=== PATIENT | female | born 1940 | race Caucasian/White ===

== ENCOUNTER → 2020-06-01 11:37 | Outpatient (CLI) | payer MEDICARE, SELFPAY ==
--- NOTE | ~2020-06-01 | XR_ITS ---
EXAMINATION: XR hand LT min 3V EXAM DATE: 06/01/2020 12:05 INDICATION: No known recent injury provided at this time. Pain of the left hand. TECHNIQUE: Left hand frontal, lateral and oblique projections obtained and reviewed. There is no iman or study for comparison. FINDINGS: Left metacarpal bones are unremarkable. There is mild polyarticular interphalangeal primar y osteoarthritis. There are no bony erosions identified. There are no acute fractures or dislocation s identified. There is no subcutaneous gas. The soft tissue is unremarkable. There are no radiopa que foreign bodies. IMPRESSION: Mild left hand interphalangeal polyarticular osteoarthritis. Reviewed, dictated and finalized at location B. 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
--- NOTE | ~2020-06-01 | XR_ITS ---
EXAMINATION: XR shoulder RT min 2V EXAM DATE: 06/01/2020 12:05 INDICATION: No known recent injury provided at this time. Pain of the right shoulder. TECHNIQUE: The following right shoulder projections obtained: frontal projection with internal rotati on, frontal projection with external rotation, Grashey, and axillary (4+ views). There is no prior s tudy for comparison. FINDINGS: No evidence of right shoulder rotator cuff calcific tendinosis. There is mild acromiocla vicular joint primary osteoarthritis. There are no acute fractures or dislocations identified. There is no subcutaneous gas. The soft tissue is unremarkable. There are no radiopaque foreign bodies. IMPRESSION: Mild right acromioclavicular joint osteoarthritis. Reviewed, dictated and finalized at location B. 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
--- NOTE | ~2020-06-01 | XR_ITS ---
EXAMINATION: XR hand RT min 3V EXAM DATE: 06/01/2020 12:05 INDICATION: No known recent injury provided at this time. Pain of the right hand. TECHNIQUE: Right hand frontal, lateral and oblique projections obtained and reviewed. There is no pr ior study for comparison. FINDINGS: Right metacarpal bones are unremarkable. There is mild polyarticular interphalangeal, mild to moderate 1st carpometacarpal primary osteoarthritis. There are no bony erosions identified. Ther e are no acute fractures or dislocations identified. There is no subcutaneous gas. The soft tissue is unremarkable. There are no radiopaque foreign bodies. IMPRESSION: Right hand polyarticular osteoarthritis, mild to moderate at the carpometacarpal joint. Reviewed, dictated and finalized at location B. 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
== END ==
PROVIDERS: PCP Physician Assistant; Visit Provider Physician Assistant
DX: M19.011 Primary osteoarthritis, right shoulder (principal); M19.041 Primary osteoarthritis, right hand; M19.042 Primary osteoarthritis, left hand
CPT/HCPCS: 73030; 73130

== ENCOUNTER 2020-09-16 10:43 | Outpatient (CLI) | payer MEDICARE, SELFPAY ==
--- NOTE | ~2020-09-16 | XR_ITS ---
EXAMINATION: XR lg joint inject/asp w image EXAM DATE: 09/16/2020 11:26 INDICATION: Left shoulder pain, adhesive capsulitis. TECHNIQUE: This procedure was performed by Dr. Deandre Lunsford, radiologist. I discussed procedure inclu ding the risks, benefits and alternatives with the patient. Risks discussed included bleeding and inf ection. The patient understood the risks and agreed to proceed. A time-out was performed to verify the patient's name, date of , and procedure. The skin over lying the left shoulder joint was prepped and draped in usual sterile fashion. Anesthetic was admin istered with 3 milliliters 1% lidocaine subcutaneously. A 22 G needle was advanced under fluoroscopi c guidance into the joint. Total of 1 mL of Omnipaque 240 confirmed intra-articular position of the needle. Subsequently, injectate consisting of 3cc lidocaine/40mg kenalog was instilled. The needl e was removed and the entry site was cleaned and dressed. There were no immediate complications. Pu lsed dose reduction fluoroscopy was used with fluoroscopic time of 0.1. The DAP for this procedure w as 0.05 Gycm2. A total of 5 images obtained for the exam. The procedure was performed on 09/16/2020. FINDINGS: Real-time fluoroscopy demonstrates the needle and contrast in the left shoulder joint. IMPRESSION: Successful left shoulder joint injection with steroids, lidocaine. Reviewed, dictated and finalized at location A.
== END 2020-09-16 10:44 | disposition home or self-care (01) ==
LOC: ANHIMG 10:47
PROVIDERS: PCP Physician Assistant; Visit Provider Physician Assistant
DX: M75.02 Adhesive capsulitis of left shoulder (principal)
CPT/HCPCS: 20610; 77002; J3301; Q9966

== ENCOUNTER 2021-12-07 10:29 | Outpatient (CLI) | payer MEDICARE, SELFPAY ==
--- NOTE | ~2021-12-07 | CT_ITS ---
EXAMINATION: CT abdomen pelvis w con DATE: 12/07/2021 11:02 INDICATION: Generalized abdominal pain TECHNIQUE: Computed tomography (CT) of the abdomen and pelvis was performed with 100 CC Omnipaque 350 intravenous contrast. Automated exposure control and iterative reconstruction technique were employe d. Exam dose: 311.21 mGy-cm total exam DLP. COMPARISON: None. 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 Emphysematous changes are note d in the included lower lung zones. There is minimal atelectasis at the dependent lower lobes. Normal heart size. No pericardial or pleural effusion. Small sliding hiatal hernia. Multiple gallstones including larger stone measuring up to 2.8 cm. Gallbladder wall thickness is with in upper normal range. No pericholecystic fluid or fat stranding. No bile duct or pancreatic duct dil atation. The liver, spleen, pancreas, and adrenal glands are unremarkable. 6 mm lower pole right renal cyst and additional old 3 mm lower pole right renal cyst. Approximately 1 .7 cm on 4 cm and 3 mm left renal cysts. No urinary tract calculus or hydroureteronephrosis. The urin heather bladder is unremarkable. Status post hysterectomy. There is extensive atherosclerotic calcification of the abdominal aorta but no aneurysm. No intraperi toneal or retroperitoneal or pelvic mass lesion or adenopathy or ascites is detected. Normal appendix. There are numerous diverticula of the sigmoid colon; no CT evidence of diverticulitis. No bowel obstr uction, bowel wall thickening, pneumatosis or intraperitoneal free air. 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 Bilateral hip osteoarthritis. There is osteopenia. IMPRESSION: Emphysema Small sliding hiatal hernia Cholelithiasis Bilateral renal cysts Status post hysterectomy Normal appendix Diverticulosis of sigmoid colon; no evidence of diverticulitis Reviewed, dictated and finalized at Location A. Reviewed, dictated and finalized at location B.
--- NOTE | ~2021-12-07 | US_ITS ---
EXAMINATION: US carotid duplex BI DATE: 12/07/2021 12:14 INDICATION: Benign hypertensive kidney disease with chronic kidney disease. TECHNIQUE: Grayscale, color Doppler, and pulsed Doppler images of the cervical carotid arteries were obtained. The degree of vessel stenosis is placed in one of the following categories: normal, <50%, 5 0-69%, >=70% but less than near-occlusion, near-occlusion, or total occlusion. Note that percent sten osis relative to normal distal artery lumen diameter is indirectly measured from velocity measurement s as described by Maurilio, et al. Radiology 2003; [id number]:[id number]. COMPARISON: None. FINDINGS: RIGHT: The right common carotid artery (CCA) peak systolic velocity (PSV) is 119 cm/s. The right internal ca rotid artery (ICA) PSV is 149 cm/s. The right ICA end-diastolic velocity (EDV) is 15 cm/s. The right ICA/CCA PSV ratio is 1.3. Grayscale and color Doppler images yield an estimate of <50% diameter reduc tion from plaque in the ICA. There is antegrade flow in the right vertebral artery. LEFT: The left CCA PSV is 153 cm/s. The left ICA PSV is 188 cm/s. The left ICA EDV is 26 cm/s. The left ICA /CCA PSV ratio is 1.2. Grayscale and color shadowing plaque obscures the ICA lumen. There is antegrad e flow in the left vertebral artery. IMPRESSION: 1. <50% stenosis in the right internal carotid artery. 2. <50% stenosis in the left internal carotid artery. Reviewed, dictated and finalized at location A.
[2021-12-07 10:56] LABS: Estimated Glomerular Filt Rate 53
== END 2021-12-07 10:30 | disposition home or self-care (01) ==
PROVIDERS: PCP Physician Assistant; Visit Provider Physician Assistant
DX: R10.84 Generalized abdominal pain (principal); I65.23 Occlusion and stenosis of bilateral carotid arteries; J43.9 Emphysema, unspecified; K44.9 Diaphragmatic hernia without obstruction or gangrene; K80.20 Calculus of gallbladder without cholecystitis without obstruction; N28.1 Cyst of kidney, acquired; K57.30 Diverticulosis of large intestine without perforation or abscess without bleeding
CPT/HCPCS: 74177; 93880; Q9967